=== PATIENT | female | born 2005 | race Two or more races ===

== ENCOUNTER 2024-07-29 22:06 | Emergency (ER) | payer OTHER ==
[~2024-07-29] VITALS: Ht 167.6 cm; Wt 105.2 kg
[2024-07-30] MEDS ORDERED: KETOROLAC TROMETHAMINE 60 MG VIAL IM STA (01:15)
[2024-07-30] MEDS ORDERED: KETOROLAC TROMETHAMINE 60 MG VIAL IM ONE (01:24)
[2024-07-30 01:52] LABS: HEMATOCRIT 42.1 % (36.0-45.00); HEMOGLOBIN 14.2 g/dL (12.0-15.00); MEAN CORPUSCULAR HEMOGLOBIN 28.7 pg (27.00-32.0); MEAN CORPUSCULAR HGB CONC 33.8 g/dl (32.0-36.0); PLATELET COUNT 293 K/uL (150-450); RED BLOOD COUNT 4.95 M/uL (4.00-6.00)
[2024-07-30] MEDS ORDERED: DOLOGESIC-DF 51 EACH PO ×2 (02:56→02:57)
[2024-07-30] MEDS ORDERED: ORASEP SPRAY30 ML MM (02:57)
== END 2024-07-30 03:04 ==
LOC: ER 22:09
PROVIDERS: General Practice
DX: J06.9 Acute upper respiratory infection, unspecified (principal); Z20.822 Contact with and (suspected) exposure to COVID-19